=== PATIENT | male | born 1950 | race Caucasian/White ===

== ENCOUNTER → 2016-07-29 | Outpatient (CLI) | payer BC ==
[~2016-07-29] MED LIST: ATOR-24 PO; BROM0.0911 OP; ERGO1CAP35 PO; GABA-113 PO; HMLI SC; INSDGI SC; INSDGI SQ; LOSA1TAB38 PO; METF-384 PO; PRED1SUS3 OPL
[2016-07-29 18:17] LABS: BASO % 0.2 %; BASO ABS # 0.02 K/uL (0-0.2); EOS % 1.6 %; HEMATOCRIT 34.3 % (42-52); IG% 0.4 %; LYMPH % 14.2 %; LYMPH ABS # 1.56 K/uL (1.2-3.4); MEAN CELL VOLUME 87.7 fL (80-100); MEAN CORPUSCULAR HEMOGLOBIN 28.1 pg (25-34); MEAN PLATELET VOLUME 8.2 fL (7.4-10.4); MONO % 10.5 %; NEUT % 73.1 %; PLATELET COUNT 358 K/uL (130-400); RED BLOOD COUNT 3.91 M/uL (4.7-6.1)
[2016-07-29 18:18] LABS: COMPLETE YES; MEAN CORPUSCULAR HGB CONC 32.1 g/dl (32-36)
[2016-07-29 19:24] LABS: C-REACTIVE PROTEIN 1.53 mg/dl (0-0.29); URIC ACID 6.6 mg/dl (2.6-7.2)
[2016-08-01 10:39] LABS: 18KDIGG BAND NONREACTIVE (NONREACTIVE); 23KDIGG BAND NONREACTIVE (NONREACTIVE); 23KDIGM BAND NONREACTIVE (NONREACTIVE); 28KDIGG BAND NONREACTIVE (NONREACTIVE); 30KDIGG BAND NONREACTIVE (NONREACTIVE); 39KDIGG BAND NONREACTIVE (NONREACTIVE); 39KDIGM BAND NONREACTIVE (NONREACTIVE); 41KDIGG BAND REACTIVE (NONREACTIVE); 41KDIGM BAND REACTIVE (NONREACTIVE); 45KDIGG BAND NONREACTIVE (NONREACTIVE); 58KDIGG BAND NONREACTIVE (NONREACTIVE); 66KDIGG BAND NONREACTIVE (NONREACTIVE); 93KDIGG BAND NONREACTIVE (NONREACTIVE)
== END | disposition home or self-care (01) ==
LOC: C.LABMFLN 12:02
PROVIDERS: ATTEND Orthopaedic Surgery
DX: M25.532 Pain in left wrist (principal)

== ENCOUNTER → 2016-07-30 | Outpatient (CLI) | payer BC | END | disposition home or self-care (01) | LOC: C.LABMFLN 16:40 | PROVIDERS: ATTEND Physician Assistant | DX: M25.532 Pain in left wrist (principal) ==